=== PATIENT | male | born 1980 | race Caucasian/White ===

== ENCOUNTER 2017-09-28 18:31 | Inpatient (IN) | payer BC, OTHER ==
[~2017-09-28] VITALS: Ht 188 cm; Wt 119.8 kg
[~2017-09-28 18:31] MED LIST: CEPH-38 PO; HYDR-34 PO; NO HOME MEDICATIONS
[2017-09-28] MEDS ORDERED: fentaNYL INJECTION 100 MCG/2 ML AMP ONE ×2 (18:35→18:49)
[2017-09-28 18:46] LABS: MEAN PLATELET VOLUME 10.2 FL (7.4-10.4); RED BLOOD COUNT 5.11 10^6/uL (4.35-5.85); RED CELL DISTRIBUTION WIDTH 13.7 % (10.0-14.5); WHITE BLOOD COUNT 19.5 10^3/uL (4.3-11.0)
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
[2017-09-28 18:56] LABS: INR 1.1 (0.8-1.4); PROTHROMBIN TIME PATIENT 14.1 SEC (12.2-14.7)
[2017-09-28 19:04] LABS: ALANINE AMINOTRANSFERASE 26 U/L (0-55); ALBUMIN 4.3 GM/DL (3.2-4.5); ALCOHOL < 10 MG/DL (<10); ANION GAP 11 MMOL/L (5-14); ASPARTATE AMINO TRANSFERASE 30 U/L (5-34); BILIRUBIN,DIRECT 0.2 MG/DL (0.0-0.3); BILIRUBIN,INDIRECT 0.2 MG/DL; BILIRUBIN,TOTAL 0.4 MG/DL (0.1-1.0); BLOOD UREA NITROGEN 20 MG/DL (7-18); BUN/CREATININE RATIO 21; CARBON DIOXIDE 25 MMOL/L (21-32); CHLORIDE 106 MMOL/L (98-107); CREATININE SERUM 0.95 MG/DL (0.60-1.30); GFR ESTIMATED > 60; GLUCOSE 141 MG/DL (70-105); PHOSPHORUS 2.4 MG/DL (2.3-4.7); POTASSIUM 3.6 MMOL/L (3.6-5.0); SODIUM 142 MMOL/L (135-145); TOTAL PROTEIN 6.7 GM/DL (6.4-8.2)
[2017-09-28] MEDS ORDERED: IOHEXOL 350 MG/ML 100 ML (OMNIPAQUE 350) VIAL IV ONE (19:15)
[2017-09-28] MEDS ORDERED: NS 100 ML (IVPB) BAG IV ONE (19:15)
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
[2017-09-28] MEDS ORDERED: fentaNYL INJECTION 100 MCG/2 ML AMP IVP ONE ×2 (19:45→21:45)
[2017-09-28] MEDS ORDERED: NS IV 1000 ML 1,000 ML IV ONE (19:53)
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
[2017-09-28] MEDS ORDERED: FLUORESCEIN (FLUOR-I-STRIPS) 1 MG STRP ONE (21:33)
[2017-09-28] MEDS ORDERED: TETRACAINE 0.5% OPHTH SOLN 4 ML BTL (SINGLE DOSE ONLY) ONE (21:33)
[2017-09-28] MEDS ORDERED: FLUORESCEIN (FLUOR-I-STRIPS) 1 MG STRP OU ONE (21:45)
[2017-09-28] MEDS ORDERED: TETRACAINE 0.5% OPHTH SOLN 4 ML BTL (SINGLE DOSE ONLY) OU ONE (21:45)
[2017-09-28] MEDS ORDERED: TETANUS,DIPTH,PERTUSS P/F (BOOSTRIX) 0.5 ML VIAL IM ONE (22:15)
[2017-09-28 22:43] VITALS: BP 172/93
[2017-09-28] MEDS ORDERED: ONDANSETRON 4 MG/2 ML (SDV) Z0FRAN IV PRN (23:15)
[2017-09-28] MEDS ORDERED: IBUPROFEN 800 MG (MOTRIN) TAB PO PRN (23:15)
[2017-09-28] MEDS: fentaNYL INJECTION 100 MCG/2 ML AMP IV PRN (23:43)
[2017-09-29] VITALS (7 sets, daily range): BP systolic 120–143; BP diastolic 71–83
[2017-09-29] MEDS: fentaNYL INJECTION 100 MCG/2 ML AMP IV PRN ×6 (03:02→21:54)
[2017-09-29] MEDS: HYDROcodone/APAP 5 MG/325 MG (LORTAB) TAB PO PRN ×2 (03:02→12:12)
[2017-09-29 06:13] LABS: BASOPHILS % (AUTO) 0 % (0-10); EOSINOPHILS % (AUTO) 0 % (0-10); LYMPHOCYTES # (AUTO) 1.5 X 10^3 (1.0-4.0); LYMPHOCYTES % (AUTO) 10 % (12-44); MEAN CORPUSCULAR HEMOGLOBIN 32 PG (25-34); MEAN CORPUSCULAR HGB CONC 34 G/DL (32-36); MEAN CORPUSCULAR VOLUME 94 FL (80-99); MEAN PLATELET VOLUME 10.5 FL (7.4-10.4); MONOCYTES # (AUTO) 1.5 X 10^3 (0.0-1.0); MONOCYTES % (AUTO) 10 % (0-12); NEUTROPHILS # (AUTO) 11.8 X 10^3 (1.8-7.8); NEUTROPHILS % (AUTO) 80 % (42-75); PLATELET COUNT 238 10^3/uL (130-400); RED BLOOD COUNT 4.57 10^6/uL (4.35-5.85); RED CELL DISTRIBUTION WIDTH 13.7 % (10.0-14.5); WHITE BLOOD COUNT 14.8 10^3/uL (4.3-11.0)
[2017-09-29 07:14] LABS: ALANINE AMINOTRANSFERASE 30 U/L (0-55); ALBUMIN 3.9 GM/DL (3.2-4.5); ANION GAP 10 MMOL/L (5-14); ASPARTATE AMINO TRANSFERASE 57 U/L (5-34); BILIRUBIN,TOTAL 0.6 MG/DL (0.1-1.0); BLOOD UREA NITROGEN 17 MG/DL (7-18); BUN/CREATININE RATIO 19; CALCIUM 8.8 MG/DL (8.5-10.1); CARBON DIOXIDE 25 MMOL/L (21-32); CHLORIDE 104 MMOL/L (98-107); GFR ESTIMATED > 60; GLUCOSE 138 MG/DL (70-105); POTASSIUM 4.4 MMOL/L (3.6-5.0); SODIUM 139 MMOL/L (135-145); TOTAL PROTEIN 6.2 GM/DL (6.4-8.2)
[2017-09-29] MEDS ORDERED: INFLUENZA TRIvalent 2017-2018 0.5 ML/45 MCG SYR IM ONE (07:15)
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
--- NOTE | 2017-09-29 12:15 | Progress Note (SOAP) ---
Subjective Date Seen by Provider: Sep 29, 2017 Time Seen by Provider: 08:55 Subjective/Events-last exam reports pain over the right shoulder, right knee joint and posterior chest wall. Review of Systems General: Malaise HEENT: No Head Aches, No Eye Pain, No Ear Pain, No Dysphasia, No Sinus Congestion, No Post Nasal Drip, No Sore Throat Pulmonary: Cough Cardiovascular: No: Chest Pain, Palpitations, Orthopnea, Paroxysmal Noc. Dyspnea, Edema, Lt Headedness Gastrointestinal: No: Nausea, Vomiting, Abdominal Pain, Diarrhea, Constipation , Melena, Hematochezia Genitourinary: No Dysuria, No Frequency, No Incontinence, No Hematuria, No Retention Musculoskeletal: back pain, leg pain Neurological: No: Weakness, Numbness, Incoordination, Change in speech, Confusion, Seizures, Other Objective Exam Vital Signs Date Time Temp Pulse Resp B/P (MAP) Pulse Ox O2 Delivery O2 Flow Rate FiO2 09/29/17 11:25 98.6 108 20 128/78 (95) 95 Nasal Cannula 09/29/17 08:53 98.2 105 30 130/83 (99) 93 Nasal Cannula 09/29/17 08:15 94 Nasal Cannula 1.00 09/29/17 07:48 94 Room Air 09/29/17 04:10 98.5 109 23 120/76 (91) 94 Nasal Cannula 2.00 09/29/17 02:07 96 Nasal Cannula 1.00 09/29/17 00:00 97.8 100 18 130/71 (90) 95 Room Air 09/28/17 23:17 97 2.50 09/28/17 22:43 98.2 99 17 172/93 (119) 95 Nasal Cannula 09/28/17 22:30 Room Air 09/28/17 22:22 97 20 95 09/28/17 18:32 98.8 95 18 139/84 (102) 94 Nasal Cannula I & O 09/29/17 07:00 Intake Total 1200 ml Output Total 300 ml Balance 900 ml Capillary Refill : Less Than 3 SecondsLess Than 3 Seconds General Appearance: Anxious HEENT: Normal ENT Inspection Neck: Normal Inspection Respiratory: Decreased Breath Sounds Cardiovascular: Regular Rate, Rhythm Gastrointestinal: non tender, soft Extremity: Other Neurologic/Psychiatric: Alert, Oriented x3 Skin: Warm/Dry Other comments tenderness over the right knee joint but is able to move the joint reasonably well. Severe ecchymosis over the right flank due to the transverse process fracture. Results Lab Laboratory Tests 09/28/17 18:37: White Blood Count 19.5H, Red Blood Count 5.11, Hemoglobin 16.4, Hematocrit 47, Mean Corpuscular Volume 92, Mean Corpuscular Hemoglobin 32, Mean Corpuscular Hemoglobin Concent 35, Red Cell Distribution Width 13.7, Platelet Count 276, Mean Platelet Volume 10.2, Prothrombin Time 14.1, INR Comment 1.1, Activated Partial Thromboplast Time 28, Fibrinogen 318, D-Dimer 3.26H, Sodium Level 142, Potassium Level 3.6, Chloride Level 106, Carbon Dioxide Level 25, Anion Gap 11, Blood Urea Nitrogen 20H, Creatinine 0.95, Estimat Glomerular Filtration Rate > 60, BUN/Creatinine Ratio 21, Glucose Level 141H, Calcium Level 9.0, Phosphorus Level 2.4, Magnesium Level 2.0, Total Bilirubin 0.4, Direct Bilirubin 0.2, Indirect Bilirubin 0.2, Aspartate Amino Transf (AST/SGOT) 30, Alanine Aminotransferase (ALT/SGPT) 26, Alkaline Phosphatase 59, Troponin I < 0.30, Total Protein 6.7, Albumin 4.3, Serum Alcohol < 10 09/28/17 19:25: Lactic Acid Level 2.25*H 09/28/17 21:39: Lactic Acid Level 1.13 09/29/17 03:30: Urine Opiates Screen NEGATIVE, Urine Oxycodone Screen NEGATIVE, Urine Methadone Screen NEGATIVE, Urine Propoxyphene Screen NEGATIVE, Urine Barbiturates Screen NEGATIVE, Ur Tricyclic Antidepressants Screen NEGATIVE, Urine Phencyclidine Screen NEGATIVE, Urine Amphetamines Screen NEGATIVE, Urine Methamphetamines Screen POSITIVEH, Urine Benzodiazepines Screen NEGATIVE, Urine Cocaine Screen NEGATIVE, Urine Cannabinoids Screen NEGATIVE 09/29/17 05:38: White Blood Count 14.8H, Red Blood Count 4.57, Hemoglobin 14.7, Hematocrit 43, Mean Corpuscular Volume 94, Mean Corpuscular Hemoglobin 32, Mean Corpuscular Hemoglobin Concent 34, Red Cell Distribution Width 13.7, Platelet Count 238, Mean Platelet Volume 10.5H, Neutrophils (%) (Auto) 80H, Lymphocytes (%) (Auto) 10L, Monocytes (%) (Auto) 10, Eosinophils (%) (Auto) 0, Basophils (%) (Auto) 0, Neutrophils # (Auto) 11.8H, Lymphocytes # (Auto) 1.5, Monocytes # (Auto) 1.5H, Eosinophils # (Auto) 0.0, Basophils # (Auto) 0.0, Sodium Level 139, Potassium Level 4.4, Chloride Level 104, Carbon Dioxide Level 25, Anion Gap 10, Blood Urea Nitrogen 17, Creatinine 0.90, Estimat Glomerular Filtration Rate > 60, BUN/ Creatinine Ratio 19, Glucose Level 138H, Calcium Level 8.8, Total Bilirubin 0.6 , Aspartate Amino Transf (AST/SGOT) 57H, Alanine Aminotransferase (ALT/SGPT) 30 , Alkaline Phosphatase 49, Total Protein 6.2L, Albumin 3.9 Assessment/Plan Assessment/Plan Assess & Plan/Chief Complaint gentleman with multiple rib fractures. Fracture of the right scapula. Pulmonary contusion. We'll continue to use incentive spirometry and employed chemical thromboprophylaxis with low molecular weight heparin. Final Diagnosis multiple rib fractures. Fracture right scapula. Fracture of the transverse processes of L3 and L4 vertebra on the right side. pulmonary contusion Clinical Quality Measures DVT/VTE Risk/Contraindication: Risk Factor Score Per Nursin RFS Level Per Nursing on Admit: 4+=Very High NICOL DIXON MD Sep 29, 2017 12:15
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
[2017-09-29] MEDS: HYDROcodone/APAP 7.5 MG/325 MG (LORTAB, LORCET PLUS) TABLET PO PRN ×2 (16:20→20:49)
[2017-09-29] MEDS ORDERED: ENOXAPARIN 40 MG/0.4 ML (LOVENOX) SYR SC SCH (19:15)
[2017-09-29] MEDS ORDERED: RT-ALBUTEROL SULF 2.5 MG/3 ML PRE-MIX VIAL INH PRN (23:45)
[2017-09-30] VITALS: BP 133/75
[2017-09-30] MEDS: fentaNYL INJECTION 100 MCG/2 ML AMP IV PRN ×6 (00:15→20:00)
[2017-09-30] MEDS: HYDROcodone/APAP 7.5 MG/325 MG (LORTAB, LORCET PLUS) TABLET PO PRN ×3 (00:16→16:47)
[2017-09-30] MEDS: RT-ALBUTEROL SULF 2.5 MG/3 ML PRE-MIX VIAL INH SCH ×6 (01:58→22:29)
[2017-09-30 04:12] VITALS: BP 134/79
[2017-09-30 08:30] VITALS: BP 132/74
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
[2017-09-30] MEDS ORDERED: CATHETER FLUSH 10 ML SYR IV PRN (11:15)
--- NOTE | 2017-09-30 11:19 | Diagnostic Imaging Report ---
EXAMINATION: PA and lateral views of the chest. INDICATION: Pulmonary contusion. COMPARISON: 09/28/2017. FINDINGS: There is development of a right basilar atelectasis and small effusion. Minimal left basilar atelectasis is seen. There is no pneumothorax. The heart is enlarged. Bilateral rib fractures are seen. IMPRESSION: Development of a right basilar atelectasis and small right pleural effusion or hemothorax. Dictated by: Dictated on workstation # [id number]
[2017-09-30] MEDS ORDERED: SUFENTA 0.6MCG/ML BUPIVA 0.125 100 ML ONE ×2 (12:55→12:57)
[2017-09-30] MEDS ORDERED: LIDOCAINE PF 2% 5 ML (XYLOCAINE) VIAL ONE (12:56)
[2017-09-30] MEDS ORDERED: BUPIVACAINE 0.25% 30 ML (SENSORCAINE) VIAL ONE (12:56)
[2017-09-30] MEDS: cefTRIAXone INJECTION 2,000 MG in NS (IVPB) 50 ML IV SCH (12:57)
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
[2017-09-30 16:23] VITALS: BP 130/81
[2017-09-30 19:54] VITALS: BP 125/78
[2017-09-30] MEDS: EPIDURAL (SUFENTA 0.6MCG/ML BUPIVA 0.125%) 100 ML BAG EPI SCH (23:24)
[2017-10-01] VITALS: BP 146/79
[2017-10-01] MEDS: HYDROcodone/APAP 7.5 MG/325 MG (LORTAB, LORCET PLUS) TABLET PO PRN ×3 (03:01→17:37)
[2017-10-01] MEDS: RT-ALBUTEROL SULF 2.5 MG/3 ML PRE-MIX VIAL INH SCH ×6 (03:02→22:41)
[2017-10-01 04:05] VITALS: BP 145/64
[2017-10-01] MEDS: fentaNYL INJECTION 100 MCG/2 ML AMP IV PRN ×5 (07:06→19:52)
[2017-10-01 08:00] VITALS: BP 133/60
[2017-10-01] MEDS: cefTRIAXone INJECTION 2,000 MG in NS (IVPB) 50 ML IV SCH (08:58)
[2017-10-01] MEDS ORDERED: fentaNYL INJECTION 100 MCG/2 ML AMP IVP NR (10:47)
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
[2017-10-01] MEDS: EPIDURAL (SUFENTA 0.6MCG/ML BUPIVA 0.125%) 100 ML BAG EPI SCH ×2 (11:45→20:46)
[2017-10-01 12:00] VITALS: BP 131/65
[2017-10-01] MEDS ORDERED: PREPARATION H OINTMENT 57 GR TUBE PR PRN (14:30)
--- NOTE | 2017-10-01 15:49 | Progress Note-Standard ---
Standard Progress Note Progress Notes/Assess & Plan Date Seen by Provider: Oct 01, 2017 Time Seen by Provider: 15:40 Final Diagnosis Spoke with patient about pain relief from thoracic epidural. Patient states still having pain. Rate increased to 10cc/hr and a 3cc bolus given. After approx 10 min patient re-evaluated. Stated pain was better. JOHN TADEO CRNA Oct 01, 2017 15:49
[2017-10-01 16:00] VITALS: BP 118/67
[2017-10-01 19:45] VITALS: BP 119/78
[2017-10-01] MEDS: POLYETHYLENE GLYCOL 17 GM (MIRALAX) PACK PO SCH (19:52)
[2017-10-02] VITALS: BP 138/62
[2017-10-02] MEDS: HYDROcodone/APAP 7.5 MG/325 MG (LORTAB, LORCET PLUS) TABLET PO PRN ×6 (00:57→22:51)
[2017-10-02] MEDS: fentaNYL INJECTION 100 MCG/2 ML AMP IV PRN ×7 (00:57→22:51)
[2017-10-02] MEDS: RT-ALBUTEROL SULF 2.5 MG/3 ML PRE-MIX VIAL INH SCH ×6 (02:53→22:24)
[2017-10-02 04:05] VITALS: BP 135/70
[2017-10-02] MEDS: PANTOPRAZOLE 40 MG (PROTONIX) TAB PO SCH (05:18)
[2017-10-02] MEDS: EPIDURAL (SUFENTA 0.6MCG/ML BUPIVA 0.125%) 100 ML BAG EPI SCH ×3 (05:20→21:27)
[2017-10-02 08:00] VITALS: BP 131/62
[2017-10-02] MEDS: cefTRIAXone INJECTION 2,000 MG in NS (IVPB) 50 ML IV SCH (09:08)
[2017-10-02] MEDS: POLYETHYLENE GLYCOL 17 GM (MIRALAX) PACK PO SCH ×2 (09:08→19:38)
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
[2017-10-02 11:07] VITALS: BP 135/66
--- NOTE | 2017-10-02 13:04 | Progress Note-Standard ---
Standard Progress Note Progress Notes/Assess & Plan Date Seen by Provider: Oct 02, 2017 Time Seen by Provider: 13:00 Progress/Assessment & Plan Patient doing well with some pain breakthrough. Patient hurting at this time a bolus of 5cc will be given. Discussed plans to remove epidural tomorrow. JOHN TADEO CRNA Oct 02, 2017 13:03
[2017-10-02 15:30] VITALS: BP 140/66
[2017-10-02 19:43] VITALS: BP 150/76
[2017-10-03] VITALS (7 sets, daily range): BP systolic 112–143; BP diastolic 68–77
[2017-10-03] MEDS: fentaNYL INJECTION 100 MCG/2 ML AMP IV PRN ×4 (00:39→22:27)
[2017-10-03] MEDS: RT-ALBUTEROL SULF 2.5 MG/3 ML PRE-MIX VIAL INH SCH ×6 (02:29→21:52)
[2017-10-03] MEDS: HYDROcodone/APAP 7.5 MG/325 MG (LORTAB, LORCET PLUS) TABLET PO PRN ×5 (02:55→20:20)
[2017-10-03] MEDS: EPIDURAL (SUFENTA 0.6MCG/ML BUPIVA 0.125%) 100 ML BAG EPI SCH (05:38)
[2017-10-03] MEDS: PANTOPRAZOLE 40 MG (PROTONIX) TAB PO SCH (05:39)
[2017-10-03] MEDS: POLYETHYLENE GLYCOL 17 GM (MIRALAX) PACK PO SCH ×2 (08:15→20:27)
[2017-10-03] MEDS: DOCUSATE SODIUM 100 MG (COLACE) CAP PO SCH ×2 (08:15→20:19)
[2017-10-03] MEDS: cefTRIAXone INJECTION 2,000 MG in NS (IVPB) 50 ML IV SCH (08:15)
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
[2017-10-03] MEDS ORDERED: MAGNESIUM CITRATE 300 ML BTL PO NR (09:25)
[2017-10-03] MEDS: IBUPROFEN 800 MG (MOTRIN) TAB PO SCH ×2 (09:40→17:22)
--- NOTE | 2017-10-03 11:31 | Anesthesia-Regional Post-Op ---
Regional Patient Condition Mental Status: Alert, Oriented x3 Circulation: Same as Pre-Op Headache: Absent Sensation: Full Recovery Motor Block: Absent Post Op Complications Complications None Follow Up Care/Instructions Patient Instructions None needed. Anesthesia/Patient Condition Patient is doing well, no complaints, stable vital signs, no apparent adverse anesthesia problems. No complications reported per nursing. Pt sitting up in bed upon arrival to room with visitor. No complaints at this time, pt expressed wishes to be able to ambulate and shower as soon as possible. Infusion rate was reduced to 5ml/hr around approx. 1000. Catheter to be DC'd later today. Discussed with nursing staff, Kely. MARY ANNE to document catheter removal and that tip is intact. CATHERINE KHOURY CRNA Oct 03, 2017 11:31
[2017-10-04] MEDS: HYDROcodone/APAP 7.5 MG/325 MG (LORTAB, LORCET PLUS) TABLET PO PRN ×3 (00:12→13:43)
[2017-10-04] MEDS: IBUPROFEN 800 MG (MOTRIN) TAB PO SCH ×2 (00:12→09:20)
[2017-10-04 00:19] VITALS: BP 166/74
[2017-10-04] MEDS: RT-ALBUTEROL SULF 2.5 MG/3 ML PRE-MIX VIAL INH SCH ×3 (03:23→10:55)
[2017-10-04] MEDS: PANTOPRAZOLE 40 MG (PROTONIX) TAB PO SCH (05:50)
[2017-10-04] MEDS: fentaNYL INJECTION 100 MCG/2 ML AMP IV PRN (07:46)
[2017-10-04 08:00] VITALS: BP 139/77
[2017-10-04] MEDS: POLYETHYLENE GLYCOL 17 GM (MIRALAX) PACK PO SCH (09:20)
[2017-10-04] MEDS: DOCUSATE SODIUM 100 MG (COLACE) CAP PO SCH (09:20)
[2017-10-04] MEDS: cefTRIAXone INJECTION 2,000 MG in NS (IVPB) 50 ML IV SCH (09:20)
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
== END 2017-10-04 14:00 | disposition home or self-care (01) | DRG 184 ==
LOC: EDUNIT# 18:31 → ER 18:32 → 4TH 21:40
PROVIDERS: ADMIT Surgery; ATTEND Surgery
PROC: 3E0R3NZ Introduction of Analgesics, Hypnotics, Sedatives into Spinal Canal, Percutaneous Approach (ICD-10-PCS; principal; 2017-09-30)
DX: S22.43XA Multiple fractures of ribs, bilateral, initial encounter for closed fracture (principal); T79.7XXA Traumatic subcutaneous emphysema, initial encounter; S27.0XXA Traumatic pneumothorax, initial encounter; S27.322A Contusion of lung, bilateral, initial encounter; S32.039A Unspecified fracture of third lumbar vertebra, initial encounter for closed fracture; S32.049A Unspecified fracture of fourth lumbar vertebra, initial encounter for closed fracture; S05.01XA Injury of conjunctiva and corneal abrasion without foreign body, right eye, initial encounter; S01.111A Laceration without foreign body of right eyelid and periocular area, initial encounter; S01.112A Laceration without foreign body of left eyelid and periocular area, initial encounter; S70.11XA Contusion of right thigh, initial encounter; S42.114A Nondisplaced fracture of body of scapula, right shoulder, initial encounter for closed fracture; S80.01XA Contusion of right knee, initial encounter; F17.210 Nicotine dependence, cigarettes, uncomplicated; F15.90 Other stimulant use, unspecified, uncomplicated; K59.00 Constipation, unspecified; K29.60 Other gastritis without bleeding; V58.0XXA Driver of pick-up truck or van injured in noncollision transport accident in nontraffic accident, initial encounter; Y92.410 Unspecified street and highway as the place of occurrence of the external cause; Z23 Encounter for immunization
CPT/HCPCS: 36415; 70450; 71010; 71020; 71260; 72125; 72170; 73030; 73562; 74177; 80048; 80053; 80076; 80306; 80320; 83605; 83735; 83930; 84100; 84484; 85025; 85027; 85379; 85384; 85610; 85730; 86850; 86900; 86901; 90471; 90715; 93041; 94640; 94664; 94760; 96361; 96374; 96376; 99291

== ENCOUNTER → 2018-07-24 | Outpatient (CLI) | payer OTHER | LOC: RAD 09:40 | PROVIDERS: ATTEND Nurse Practitioner Family | DX: S49.81XA Other specified injuries of right shoulder and upper arm, initial encounter (principal) ==